=== PATIENT | female | born 1945 | race Caucasian/White ===

== ENCOUNTER 2016-09-24 09:32 | Day surgery (SDC) | payer OTHER ==
[~2016-09-24] VITALS: Ht 165.1 cm; Wt 65.8 kg
[~2016-09-24 09:32] MED LIST: ASPIR-LOW81 MG PO; ATACAND4 MG PO; Aspirin E.C. PO; Atacand PO; CALCIUM PO; COZAAR25 MG PO; Effient PO; FAMOTIDINE20 MG PO; FLONASE16 G1 BOTH NARES; FLOVENT 11120 INHALA IH; FOLIC ACID PO; FOLIC ACID0.8 MG PO; Flovent 110 mcg IH; Folic Acid PO; HUMIRA40 MG/0.1 SC; HUMIRA40 MG/0.8 SC; LIPITOR40 MG PO; LOPRESSOR25 MG PO; LUCENTIS IO; Lipitor PO; Lopressor PO; METHOTREXATE2.5 MG PO; METOPROLOL TART25 MG PO; PREDNISONE2.5 MG PO; PRESERVISION A1 EAC2 PO; Pepcid PO; RECLAST5 MG/100 M IV; TRAMADOL HCL50 MG PO; TREXALL10 MG PO; VITAMIN D250000 UNIT PO; VITAMIN D5000 UNI1 PO; VITAMIN D5000 UNIT PO; ZITHROMAX500 MG PO; predniSONE PO
[2016-09-24 10:09] VITALS: BP 132/87
[2016-09-24 10:21] LABS: EOSINOPHIL (%) 2.3 % (0-5); EOSINOPHIL COUNT 0.2 K/uL (0-0.3); HEMATOCRIT 42.6 % (36.0-46.0); IMMATURE GRANULOCYTE (%) 0.2 % (0.0-0.7); INSTRUMENT ABS NEUTROPHIL CT 6.3 K/uL; LYMPHOCYTE COUNT 1.6 K/uL (1.0-2.8); MCH 31.7 PG (29.0-34.0); MCHC 32.6 G/DL (30.0-36.0); MCV 97.3 FL (83-99); MEAN PLAT.VOLUME 10.1 uM^3 (9.5-12.4); MONOCYTE (%) 6.2 % (3-12); MONOCYTE COUNT 0.5 K/uL (0-0.8); NEUTROPHIL (%) 72.2 % (45-76); NEUTROPHIL COUNT 6.3 K/uL (1.8-6.4); PLATELET COUNT 217 K/uL (156-360); RBC DIS.WIDTH-CV 15.2 % (11.8-14.6); RBC DIS.WIDTH-SD 53.6 % (39-53); RED BLOOD COUNT 4.38 M/uL (3.80-5.20); WHITE BLOOD COUNT 8.7 K/uL (4.1-10.2)
[2016-09-24 10:30] LABS: CHLORIDE 105 mEq/L (99-109); POTASSIUM 5.2 mEq/L (3.7-5.4); SODIUM 140 mEq/L (136-147)
[2016-09-24 10:31] LABS: GLUCOSE 90 mg/dL (70-99)
[2016-09-24 10:33] LABS: ANION GAP 11 MEQ/L (2-14)
[2016-09-24 10:35] LABS: GFR ESTIMATE (CALCULATED) > 59 mL/min/
[2016-09-24 10:36] LABS: UREA NITROGEN (BUN) 14 mg/dL (9-23)
[2016-09-24 19:05] VITALS: BP 136/71
[2016-09-24 23:33] VITALS: BP 125/73
[2016-09-25 03:53] VITALS: BP 101/51
[2016-09-25 07:46] LABS: EOSINOPHIL (%) 0 % (0-5); HEMATOCRIT 37.7 % (36.0-46.0); IMMATURE GRANULOCYTE (%) 0.6 % (0.0-0.7); IMMATURE GRANULOCYTE COUNT 0.1 K/uL; INSTRUMENT ABS NEUTROPHIL CT 15.6 K/uL; LYMPHOCYTE COUNT 0.9 K/uL (1.0-2.8); MCHC 32.9 G/DL (30.0-36.0); MCV 97.2 FL (83-99); MEAN PLAT.VOLUME 10.3 uM^3 (9.5-12.4); MONOCYTE (%) 2.6 % (3-12); MONOCYTE COUNT 0.4 K/uL (0-0.8); NEUTROPHIL (%) 91.4 % (45-76); NEUTROPHIL COUNT 15.6 K/uL (1.8-6.4); PLATELET COUNT 273 K/uL (156-360); RBC DIS.WIDTH-CV 14.8 % (11.8-14.6); RBC DIS.WIDTH-SD 52.7 % (39-53); RED BLOOD COUNT 3.88 M/uL (3.80-5.20)
[2016-09-25 07:47] LABS: WHITE BLOOD COUNT 17.1 K/uL (4.1-10.2)
[2016-09-25 08:00] VITALS: BP 122/64
[2016-09-25 10:26] VITALS: BP 139/66; BP 39/66
[2016-09-25 16:18] VITALS: BP 117/62
[2016-09-25] MEDS ORDERED: ENDOCET 5-3251 EACH PO ×2 (17:51→17:55)
[2016-09-25] MEDS ORDERED: DOCUSATE SODIU100 MG PO ×2 (17:51→17:55)
== END 2016-09-25 19:50 | disposition home or self-care (01) ==
LOC: SDC 09:32 → 2EASTP 16:50
PROVIDERS: Obstetrics & Gynecology
PROC: 0UT97ZZ Resection of Uterus, Via Natural or Artificial Opening (ICD-10-PCS; principal; 2016-09-24)
PROC: 0UTC7ZZ Resection of Cervix, Via Natural or Artificial Opening (ICD-10-PCS; 2016-09-24)
PROC: 0USG0ZZ Reposition Vagina, Open Approach (ICD-10-PCS; 2016-09-24)
PROC: 0TSD0ZZ Reposition Urethra, Open Approach (ICD-10-PCS; 2016-09-24)
PROC: 0TJB8ZZ Inspection of Bladder, Via Natural or Artificial Opening Endoscopic (ICD-10-PCS; 2016-09-24)
PROC: 0JQC0ZZ Repair Pelvic Region Subcutaneous Tissue and Fascia, Open Approach (ICD-10-PCS; 2016-09-24)
DX: N81.3 Complete uterovaginal prolapse (principal); D25.9 Leiomyoma of uterus, unspecified; N39.3 Stress incontinence (female) (male); N72 Inflammatory disease of cervix uteri; N85.8 Other specified noninflammatory disorders of uterus; N95.0 Postmenopausal bleeding; I10 Essential (primary) hypertension; E78.5 Hyperlipidemia, unspecified; M81.0 Age-related osteoporosis without current pathological fracture; M06.9 Rheumatoid arthritis, unspecified; I25.2 Old myocardial infarction; Z79.82 Long term (current) use of aspirin; K21.9 Gastro-esophageal reflux disease without esophagitis
CPT/HCPCS: 80048; 85025; 86900; 86901; 88307; C1758; C1769; C1771; G0378; J0131; J0690; J1100; J1170; J1644; J1885; J2250; J2405; J2765; J3010; J7512

== ENCOUNTER 2017-07-23 07:51 | Observation (INO) | payer OTHER ==
[~2017-07-23] VITALS: Ht 154.9 cm; Wt 68.9 kg
[~2017-07-23 07:51] MED LIST changes: +DOCUSATE SODIU100 MG PO; +ENDOCET 5-3251 EACH PO
[2017-07-23 08:39] LABS: HEMATOCRIT 38.9 % (36.0-46.0); MCH 32.6 PG (29.0-34.0); MCHC 33.4 G/DL (30.0-36.0); MCV 97.5 FL (83-99); PLATELET COUNT 197 K/uL (156-360); RBC DIS.WIDTH-SD 49.7 % (39-53); RED BLOOD COUNT 3.99 M/uL (3.80-5.20); WHITE BLOOD COUNT 8.8 K/uL (4.1-10.2)
[2017-07-23 08:55] LABS: CHLORIDE 106 mEq/L (99-109); POTASSIUM 4.8 mEq/L (3.7-5.4); SODIUM 139 mEq/L (136-147)
[2017-07-23 08:56] LABS: GLUCOSE 133 mg/dL (70-99)
[2017-07-23 08:59] LABS: TROP-I INTERPRETATION NEGATIVE; TROPONIN-I < 0.01 ng/mL (0.0-0.30)
[2017-07-23 09:00] LABS: CREATININE 0.9 mg/dL (0.6-1.3); GFR ESTIMATE (CALCULATED) > 59 mL/min/
[2017-07-23 09:01] LABS: UREA NITROGEN (BUN) 16 mg/dL (9-23)
[2017-07-23 10:32] LABS: APPEARANCE CLEAR ((CLEAR)); BILIRUBIN NEGATIVE; BLOOD NEGATIVE; COLOR YELLOW ((YELLOW)); GLUCOSE (STRIP) NEGATIVE; KETONES NEGATIVE; LEUKOCYTES LARGE; NITRITE NEGATIVE; PROTEIN (STRIP) NEGATIVE; SPECIFIC GRAVITY 1.017 (1.000-1.030); UROBILINOGEN 0.2 MG/DL (0.2-1.0)
[2017-07-23 10:35] LABS: BACTERIA RARE /HPF; EPITHELIAL CELLS RARE /HPF; MUCUS TRACE /LPF; RED BLOOD CELLS 0-5 /HPF (0-5); UCUL ADDED? YES; WHITE BLOOD CELLS 20-30 /HPF (0-5)
[2017-07-23 13:34] LABS: TROP-I INTERPRETATION NEGATIVE; TROPONIN-I < 0.01 ng/mL (0.0-0.30)
[2017-07-23 14:10] VITALS: BP 117/56
[2017-07-23 15:57] VITALS: BP 115/58
[2017-07-23 20:00] VITALS: BP 107/57
[2017-07-23 20:14] LABS: TROP-I INTERPRETATION NEGATIVE; TROPONIN-I < 0.01 ng/mL (0.0-0.30)
[2017-07-23 23:48] VITALS: BP 133/65
[2017-07-24 03:56] VITALS: BP 115/64
[2017-07-24 06:25] LABS: HEMATOCRIT 39.4 % (36.0-46.0); HEMOGLOBIN 12.9 G/DL (11.9-15.5); MCH 31.8 PG (29.0-34.0); MCHC 32.7 G/DL (30.0-36.0); PLATELET COUNT 190 K/uL (156-360); RBC DIS.WIDTH-CV 13.9 % (11.8-14.6); RED BLOOD COUNT 4.06 M/uL (3.80-5.20); WHITE BLOOD COUNT 6.3 K/uL (4.1-10.2)
[2017-07-24 07:11] LABS: ALBUMIN 3.3 G/DL (3.2-4.8); ALKALINE PHOSPHATASE 53 IU/L (3-129); ALT (GPT) 16 IU/L (3-49); AST (GOT) 15 IU/L (2-34); CHLORIDE 106 MEQ/L (99-109); CREATININE 0.8 MG/DL (0.6-1.3); GFR ESTIMATE (CALCULATED) > 59 mL/min/; POTASSIUM 4.3 MEQ/L (3.7-5.4); SODIUM 140 MEQ/L (136-147); TOTAL BILIRUBIN 0.7 MG/DL (0.0-1.0); TOTAL PROTEIN 6.1 G/DL (6.4-8.3); UREA NITROGEN (BUN) 18 mg/dL (9-23)
[2017-07-24 07:22] LABS: GLUCOSE 95 mg/dL (70-99)
[2017-07-24 08:00] VITALS: BP 126/69
== END 2017-07-24 11:45 | disposition home or self-care (01) ==
LOC: EME 07:51 → EDOF 10:26 → ENRESERV 10:29 → EDOF 10:38 → ENRESERV 13:16 → 5WEST 14:08 → ENPENDDIS 07-24 → 5WEST 07-24 11:45
PROVIDERS: Emergency Medicine; Internal Medicine
DX: R07.9 Chest pain, unspecified (principal); I25.10 Atherosclerotic heart disease of native coronary artery without angina pectoris; Z95.5 Presence of coronary angioplasty implant and graft; M06.9 Rheumatoid arthritis, unspecified; E78.5 Hyperlipidemia, unspecified; R94.31 Abnormal electrocardiogram [ECG] [EKG]; Z79.899 Other long term (current) drug therapy; Z79.82 Long term (current) use of aspirin; E55.9 Vitamin D deficiency, unspecified; M81.0 Age-related osteoporosis without current pathological fracture; Z88.5 Allergy status to narcotic agent; Z88.8 Allergy status to other drugs, medicaments and biological substances; Z82.49 Family history of ischemic heart disease and other diseases of the circulatory system; Z83.3 Family history of diabetes mellitus
CPT/HCPCS: 71045; 80048; 80053; 81003; 84484; 85027; 87086; 93005; 99281; 99285; G0378; J1650; J7512